=== PATIENT | female | born 1955 | race Caucasian/White ===

== ENCOUNTER 2018-03-06 17:28 | Emergency (ER) | payer MEDICAID, SELFPAY ==
[2018-03-06 17:30] VITALS: BP 166/65; PULSE 60; RESP 24; TEMP 37.2; O2SAT 95; BMI 52.1
--- NOTE | 2018-03-06 18:12 | ED.VISSUMM ---
- ER Visit Summary Date of Service: 03/06/18 Chief Complaint: Evicted today and out of oxygen History of Present Illness: The patient is a 62 F 3 of COPD on 3-5 L of oxygen as needed. Patient was evicted from her apartment today and the oxygen she uses in the apartment when she cannot get to. She was sent here to be medically cleared and if possible given oxygen and transferred to the [facility]. I have already spoken the [facility] personnel they will accept her as long as she has O2. Physical Examination: Well-appearing older female vital signs are stable afebrile. Pulse ox 95% on 2 L. She does not look septic toxic. She is no acute distress. She states she feels absolutely fine as long she has her oxygen on. HEENT exam unremarkable. Neck nontender no JVD. Lungs coarse but no rales, rhonchi or excessive wheezing. Heart regular rhythm / 01/30 systolic ejection murmur rate about 60. Abdomen soft and nontender. Normal bowel sounds. Moving all 4 extremities. Neurologically she is awake and alert without focal motor deficits. Test Results: None Emergency Department Course and Treatment: We spoke to [facility] and irrigating the patient set up with oxygen. Patient will be sent to [facility] with oxygen. Treatment Plan: [] Disposition: discharge Impression: History of COPD requiring O2 Out of oxygen Home was being placed at the [facility] This note was generated with [employer] dictation software. It may contain incorrect words, spelling, and punctuation that were not noted in review of the chart prior to signing ED Disposition - Plan for ED Patient: Chief Complaint: General Illness Referrals: [facility] Doctor,Out of [Primary Care Provider] -
--- NOTE | 2018-03-06 18:15 | ED.DCSUM_ITS ---
- ER Visit Summary Date of Service: 03/06/18 Chief Complaint: Evicted today and out of oxygen History of Present Illness: The patient is a 62 F 3 of COPD on 3-5 L of oxygen as needed. Patient was evicted from her apartment today and the oxygen she uses in the apartment when she cannot get to. She was sent here to be medically cleared and if possible given oxygen and transferred to the [facility]. I have already spoken the [facility] personnel they will accept her as long as she has O2. Physical Examination: Well-appearing older female vital signs are stable afebrile. Pulse ox 95% on 2 L. She does not look septic toxic. She is no acute distress. She states she feels absolutely fine as long she has her oxygen on. HEENT exam unremarkable. Neck nontender no JVD. Lungs coarse but no rales, rhonchi or excessive wheezing. Heart regular rhythm / 01/30 systolic ejection murmur rate about 60. Abdomen soft and nontender. Normal bowel sounds. Moving all 4 extremities. Neurologically she is awake and alert without focal motor deficits. Test Results: None Emergency Department Course and Treatment: We spoke to [facility] and irrigating the patient set up with oxygen. Patient will be sent to [facility] with oxygen. Treatment Plan: [] Disposition: discharge Impression: History of COPD requiring O2 Out of oxygen Home was being placed at the [facility] This note was generated with [employer] dictation software. It may contain incorrect words, spelling, and punctuation that were not noted in review of the chart prior to signing ED Disposition - Plan for ED Patient: Chief Complaint: General Illness Referrals: [facility] Doctor,Out of [Primary Care Provider] -
--- NOTE | 2018-03-06 18:15 | ED.DEP ---
ED Disposition - Plan for ED Patient: Disposition: Home or Assisted Living Chief Complaint: General Illness Referrals: [facility] Doctor,Out of [Primary Care Provider] - Additional Instructions: Good luck !!
--- OUTSIDE RECORDS SUMMARY | 2018-03-06 18:32 | XMS RPT_ITS ---
:1955 Author Organization OHIP Care Team Providers Name Role Phone Olga Hutchison Primary Care Unavailable Artie Vivar Attending Unavailable TavOlga ambriz Primary Care Unavailable Me Giovanihrdakhadar Teejda Referring Unavailable Jessica Garcia Admitting Unavailable Jessica Garcia Attending Unavailable Bora Espinoza Attending Unavailable NarenallbrandoneOlga Primary Care Unavailable Triny Felton Attending Unavailable NarenallbrandoneOlga Primary Care Unavailable Triny Felton Admitting Unavailable TavallbrandoneMeOlga M Attending Unavailable TavallaeeOlga Primary Care Unavailable TavallaeeOlga Admitting Unavailable TavallbrandoneOlga Attending Unavailable NarenallOlga corey Primary Care Unavailable NarenallbrandoneDarrellOlga M Primary Care Unavailable NarenallbrandoneOlga Attending Unavailable TavallaeeMeOlga Ileana Primary Care Unavailable MD JESSICA GARCIA Attending Unavailable TavallaeeOlga Primary Care Unavailable TavallaeeOlga Attending Unavailable TavallbrandoneMeOlga M Primary Care Unavailable Bora Espinoza Attending Unavailable NarenallOlga corey Primary Care Unavailable Brice Hernandez Attending Unavailable Olga Hutchison Primary Care Unavailable Brice Hernandez Admitting Unavailable TavOlga ambriz Primary Care Unavailable Bakari Diop Admitting Unavailable JadonBakari cummins Attending Unavailable Cb, Qarab H Consulting Unavailable Tavallaee, Olga Tejeda Primary Care Unavailable Cb, Qarab H Attending Unavailable TavallaeeOlga Attending Unavailable TavallaeeDarrellOlga M Primary Care Unavailable Tavallaee, Olga M Primary Care Unavailable Tavallaee, Olga Tejeda Attending Unavailable Tavallaee, Olga Tejeda Primary Care Unavailable Bora Espinoza Attending Unavailable TavallaeeOlga Primary Care Unavailable TavallaeeOlga Admitting Unavailable Tavallaee, Olga Tejeda Attending Unavailable Tavallaee, Olga Tejeda Primary Care Unavailable Tavallaee, Olga Tejeda Attending Unavailable Tavallaee, Olga Tejeda Primary Care Unavailable Tavallaee, Olga Tejeda Attending Unavailable TavallaeeOlga Primary Care Unavailable Tavallaee, Olga Tejeda Attending Unavailable TavallaeeOlga Referring Unavailable Tavallaee, Olga Tejeda Primary Care Unavailable TavallaeeOlga Admitting Unavailable Tavallaee, Olga Tejeda Attending Unavailable TavallaeeOlga Primary Care Unavailable Tavallaee, Olga Tejeda Admitting Unavailable Triny Felton Admitting Unavailable Triny Felton Attending Unavailable TavallaeeOlga Primary Care Unavailable TavallaeeOlga Admitting Unavailable Tavallaee, Olga Tejeda Attending Unavailable TavallaeeOlga Primary Care Unavailable Tavallaee, Olga Tejeda Attending Unavailable TavallaeeOlga Primary Care Unavailable Tavallaee, Olga M Primary Care Unavailable Nate Bobo Admitting Unavailable Nate Bobo Attending Unavailable TavallaeeOlga Attending Unavailable Tavallaee, Olga M Primary Care Unavailable Ishmael Meier Admitting Unavailable Ishmael Meier Attending Unavailable Tavallaee, Olga Tejeda Primary Care Unavailable Ishmael Meier Admitting Unavailable Ishmael Meier Attending Unavailable Olga Hutchison M Primary Care Unavailable Ishmael Meier Admitting Unavailable Ishmael Meier Attending Unavailable Giovani, Olga M Primary Care Unavailable Ishmael Meier Admitting Unavailable Ishmael Meier Attending Unavailable Tavallaee, Olga M Primary Care Unavailable Tavallaee, Olga M Attending Unavailable Tavallaee, Olga M Primary Care Unavailable Bora Espinoza Attending Unavailable Tavallaee, Olga M Primary Care Unavailable Bora Espinoza Attending Unavailable Tavallaee, Olga M Primary Care Unavailable Bora Espinoza Admitting Unavailable Bora Espinoza Attending Unavailable Tavallaee, Olga M Primary Care Unavailable Mat Vanegas Attending Unavailable TAVALLAEE, OLGA Primary Care Unavailable Clarita Rice Attending Unavailable TAVALLAEE, OLGA Primary Care Unavailable PROBLEMS PROBLEMS DATE TYPE CONDITION / CODE ATTENDING STATUS SOURCE 05/09/2017 Unknown CERVICALGIA / BasalClarita magana Active [place] M54.2(ICD-10) [facility] [facility] [place]ED[place] PROCEDURES No Procedure Records FoundRESULTS RESULTS GASES - BLOOD Collected: 02/17/2018 Status: F Source: RESTORATION 9:30 AM [facility] REPOSITORY TYPE CODE TESTS RESULT OUT OF RANGE REFERENCE UNITS LAB 35175646(L Normal OINC) Sample Arterial Type. LAB 09794103(L Normal 7.350-7.450 OINC) pH. 7.366 LAB 32295432(L High 35.0-45.0 mmHg OINC) P CO2. 61.4 LAB 66455716(L Low 80-100 mmHg OINC) P O2. 63 LAB 57401251(L High 22-28 mmol/L OINC) CO2 37 Tot. LAB 15686582(L High 22.0-26.0 mmol/L OINC) HCO#. 35.2 LAB 30114374(L Low 95-100 % OINC) O2 Sat. 90 LAB 91580953(L High -2-3 mmol/L OINC) Base 10 Excess. LAB 10128033(L Normal % OINC) FiO2. 36 LAB 95298409(L Normal OINC) Sample L rad Site. LAB 44260333(L Normal OINC) Allens Neg Test. LAB 17438624(L Normal OINC) O2 Cannula Devices. LAB 78589453(L Normal OINC) Vent NOT Mode. CALCULATED LAB 68153295(L Normal OINC) Set NOT RR(b/min). CALCULATED LAB 90659792(L Normal OINC) NOT CPAP/PEEP(cmH CALCULATED 2O). LAB 40064572(L Normal OINC) Tidal NOT Volume(mL). CALCULATED LAB 79191175(L Normal OINC) NOT PSV/IP(cmH2O) CALCULATED . LAB 51853893(L Normal DegC OINC) Patient NOT Temp. CALCULATED LAB 48536307(L Normal OINC) OPID. [id number] Performed By: #### [id number] ####EMILIO POC [id number] [place] [id number] VARUN TEST Collected: 11/27/2017 Status: F Source: RESTORATION 11:32 AM [facility] REPOSITORY TYPE CODE TESTS RESULT OUT OF RANGE REFERENCE UNITS LAB 17138482(LO Normal Negative INC) VARUN Negative Test Performed By: #### [id number] ####EMILIO Misc Micro SubSection, GLUCOSE POC Collected: 11/27/2017 Status: F Source: RESTORATION 9:30 AM [facility] REPOSITORY TYPE CODE TESTS RESULT OUT OF REFERENCE UNITS RANGE LAB 18183359(LO High 70-99 mg/dL INC) Glucose 156 POC Performed By: #### [id number] ####EMILIO POC [id number] [place] [id number] XR WRIST 3+ VIEWS Observed: 11/25/2017 Status: F Source: RESTORATION LEFT 9:21 AM [facility] REPOSITORY Exam Date/Time:11/25/2017 09:26 ESTReason for Exam:Pain, Non TraumaticReportCLINICAL HISTORY: Pain along the medial aspect. No known injury.LEFT WRIST: 11/25/2017.COMPARISON: None.FINDINGS: Four views are acquired which demonstrate there is joint spacenarrowing involving the carpometacarpal joints. The bones are osteopenic. Nodefinite fractures, dislocations. No abnormal soft tissue swelling,calcifications, radiopaque foreign bodies.IMPRESSION:1. Osteopenia.2. Mild degenerative changes of the carpometacarpal joints.3. No acute fractures or dislocations. FINAL REPORT Dictated: 11/25/2017 10:27 am Adam Moore MDigned (Electronic Signature): 11/25/2017 10:27 amSigned by: Adam Moore MD Technologist: [facility] MA MAMM SCREEN W/CAD Observed: 09/23/2017 Status: F Source: RESTORATION IF PERFORMED BILAT 12:42 PM [facility] REPOSITORY Exam Date/Time:09/23/2017 13:01 ESTReason for Exam:SCREENING;ScreeningReportEXAMINATION: Digital bilateral screening mammography with CAD.INDICATION: Asymptomatic. Screening. Negative family history.COMPARISON: No comparisons available. The last examination was performed [facility] in 2002 in is no longer available forcomparison.COMPOSITION : Fatty-replaced breast tissue.FINDINGS: Negative CAD markings. No mass. No architectural distortion. Nomalignant-appearing calcification.IMPRESSION:New baseline study.Negative mammographic findings.BI-RADS 1 - Negative, no evidence of malignancy. Normal interval followup in 12months.OVERALL ASSESSMENT- NEGATIVEA letter of notification will be sent to the patient regarding the results.Assessment / Recommendation: 1-1 Normal interval follow-up.Breast density: Fatty DensityRecall interval: 012 months FINAL REPORT Dictated: 09/23/2017 3:44 pm Bora Mendez DOigned (Electronic Signature): 09/23/2017 3:44 pmSigned by: Bora Mendez DO Technologist: Karlaessment: BI-RADS Category 1-NegativeRecommendation: Normal interval follow-up CBC W/ AUTO DIFF Collected: 09/23/2017 Status: F Source: RESTORATION 12:36 PM [facility] REPOSITORY TYPE CODE TESTS RESULT OUT OF RANGE REFERENCE UNITS LAB 76378003(L Normal 3.6-11.0 E3/mcL OINC) WBC 9.5 LAB 74470286(L Normal 3.90-5.40 E6/mcL OINC) RBC 4.70 LAB 94963146(L Normal 12.0-16.0 G/DL OINC) Hgb 13.6 LAB 41072664(L Normal 36.0-48.0 % OINC) Hct 42.2 LAB 88611240(L High 11.5-14.5 % OINC) RDW 16.0 LAB 92809682(L Normal 27.0-31.0 pg OINC) MCH 29.0 LAB 96652396(L Low 33.0-37.0 G/DL OINC) MCHC 32.2 LAB 71426635(L Normal 78.0-100.0 fL OINC) MCV 89.9 LAB 83691383(L Normal 7.4-11.0 fL OINC) MPV 8.2 LAB 22194717(L Normal 130-400 E3/mcL OINC) Platelet 282 Performed By: #### [id number] ####EMILIO [address] [place] [id number] AUTO DIFF Collected: 09/23/2017 Status: F Source: RESTORATION 12:36 PM [facility] REPOSITORY Order Comment: Order Added by Discern Expert. TYPE CODE TESTS RESULT OUT OF RANGE REFERENCE UNITS LAB [id number](L Normal 37.0-75.0 % OINC) Neutro 68.4 Auto LAB [id number](L Normal 20.0-55.0 % OINC) Lymph 23.1 Auto LAB 47844329(L Normal 0.0-10.0 % OINC) [place] Auto 6.3 LAB 54646869(L Normal 0.0-11.0 % OINC) Eos Auto 1.2 LAB 52468271(L Normal 0.0-2.0 % OINC) Basophil 1.0 Auto LAB 58941542(L Normal 1.4-6.5 E3/mcL OINC) Neutro 6.5 Absolute LAB 99273001(L Normal 1.2-3.4 E3/mcL OINC) Lymph 2.2 Absolute LAB 68984732(L Normal 0.0-0.7 E3/mcL OINC) [place] 0.6 Absolute LAB 01808143(L Normal 0.0-0.7 E3/mcL OINC) Eos 0.1 Absolute LAB 25315400(L Normal 0.0-0.2 E3/mcL OINC) Basophil 0.1 Absolute Performed By: #### [id number] ####EMILIO [address] [place] [id number] CMP Collected: 09/23/2017 Status: F Source: RESTORATION 12:36 PM [facility] REPOSITORY TYPE CODE TESTS RESULT OUT OF RANGE REFERENCE UNITS LAB 63310917(L Normal 42-121 Int._Unit/ OINC) Alk Phos 66 L LAB 69903211(L Normal 0.2-1.0 mg/dL OINC) Bili Total 0.5 LAB 62644059(L Normal 3.2-5.0 G/DL OINC) Albumin Lvl 3.7 LAB 74855867(L Normal 6.4-8.3 G/DL OINC) Total Protein 7.1 LAB 77525607(L Normal 10-40 Int._Unit/ OINC) ALT 18 L LAB 76227212(L Normal 10-42 Int._Unit/ OINC) AST 19 L LAB 84687716(L Normal 2.0-4.0 G/DL OINC) Globulin 3.4 LAB 31204906(L Normal 1.1-1.9 ratio OINC) A/G Ratio 1.1 LAB 91834831(L High 70-99 mg/dL OINC) Glucose Lvl 149 LAB 56512595(L Normal 7-18 mg/dL OINC) BUN 12 LAB 3383432(LO Normal 0.6-1.3 mg/dL INC) Creatinine 0.9 LAB 51015909(L Normal 8.4-10.2 mg/dL OINC) Calcium Lvl 9.1 LAB 91213114(L Normal 136-145 mEq/L OINC) Sodium Lvl 139 LAB 41829268(L Normal 3.5-5.1 mEq/L OINC) Potassium Lvl 4.2 LAB 50737662(L Low 98-107 mEq/L OINC) Chloride 97 LAB 53482635(L High 24.0-30.0 mEq/L OINC) CO2 36.2 LAB 17214896(L Normal 5.4-30.0 ratio OINC) BUN/Creat 13.3 Ratio Performed By: #### [id number] ####EMILIO [address] [place] [address] LIPID PROFILE Collected: 09/23/2017 Status: F Source: RESTORATION 12:36 PM [facility] REPOSITORY TYPE CODE TESTS RESULT OUT OF RANGE REFERENCE UNITS LAB 01740290(LO High 50-200 mg/dL INC) Chol 208 Result Comment: TOTAL CHOLEESTEROL: <200 NORMAL 200 - 239 BORDERLINE HIGH >240 HIGH LAB 92767037(LOINC) Normal >=41 mg/dL HDL 51 LAB 06291355(LOINC) Normal 0-130 mg/dL LDL 126 Result Comment: <100 [id number] NEAR / ABOVE IUSDYUQ671-648 BORDERLINE [id number] HIGH>190 VERY HIGHCALC LDL NOT VALID WHEN TRIGLYCERIDE IS >400 MG/DL LAB 47902313(LOINC) High 35-150 mg/dL Trig 156 Result Comment: <150 EMAJCM170-970 BORDERLINE [id number] HIGH& gt;500 VERY HIGH LAB 37238141(LOINC) Normal VLDL 31 Performed By: #### [id number] ####EMILIO [address] [place] [address] TSH Collected: 09/23/2017 Status: F Source: RESTORATION 12:36 PM [facility] REPOSITORY TYPE CODE TESTS RESULT OUT OF RANGE REFERENCE UNITS LAB 97997227(LO High 0.30-5.60 mIU/m INC) TSH 10.72 Performed By: #### [id number] ####EMILIO [address] [place] [address] EGFR Collected: 09/23/2017 Status: F Source: RESTORATION 12:36 PM [facility] REPOSITORY Order Comment: Order added by Discern Expert. TYPE CODE TESTS RESULT OUT OF RANGE REFERENCE UNITS LAB 14977831(LO Normal mL/min/1.73 INC) eGFR >60 m2 LAB 06414067(LO Normal mL/min/1.73 INC) eGFR >60 m2 AA Performed By: #### [id number] ####EMILIO [address] [place] [address] HGBA1C Collected: 09/23/2017 Status: F Source: RESTORATION 12:36 PM [facility] REPOSITORY TYPE CODE TESTS RESULT OUT OF REFERENCE UNITS RANGE LAB 098140811( High 4.0-6.3 % LOINC) Hemoglobin 8.3 A1c Performed By: #### [id number] ####EMILIO Chemistry Manual [address] [place] [address] GLUCOSE POC Collected: 08/01/2017 Status: F Source: RESTORATION 11:29 AM [facility] REPOSITORY TYPE CODE TESTS RESULT OUT OF REFERENCE UNITS RANGE LAB 71056781(LO High 70-99 mg/dL INC) Glucose 284 POC Performed By: #### [id number] ####EMILIO POC [address] [place] [id number] GLUCOSE POC Collected: 08/01/2017 Status: F Source: RESTORATION 7:38 AM [facility] REPOSITORY TYPE CODE TESTS RESULT OUT OF REFERENCE UNITS RANGE LAB 59474949(LO High 70-99 mg/dL INC) Glucose 231 POC Performed By: #### [id number] ####EMILIO POC [address] [place] [id number] CBC W/ AUTO DIFF Collected: 08/01/2017 Status: F Source: RESTORATION 5:46 AM [facility] REPOSITORY TYPE CODE TESTS RESULT OUT OF RANGE REFERENCE UNITS LAB [id number](L Normal 3.6-11.0 E3/mcL OINC) WBC 10.1 LAB 44203627(L Normal 3.90-5.40 E6/mcL OINC) RBC 4.48 LAB 37657630(L Normal 12.0-16.0 G/DL OINC) Hgb 12.6 LAB 20015061(L Normal 36.0-48.0 % OINC) Hct 39.4 LAB 79611893(L High 11.5-14.5 % OINC) RDW 18.1 LAB 78712782(L Normal 27.0-31.0 pg OINC) MCH 28.2 LAB 74328772(L Low 33.0-37.0 G/DL OINC) MCHC 32.1 LAB 46284763(L Normal 78.0-100.0 fL OINC) MCV 87.8 LAB 55848930(L Normal 7.4-11.0 fL OINC) MPV 8.0 LAB 56687558(L Normal 130-400 E3/mcL OINC) Platelet 273 Performed By: #### [id number] ####EMILIO [address] [place] [id number] AUTO DIFF Collected: 08/01/2017 Status: F Source: RESTORATION 5:46 AM [facility] REPOSITORY Order Comment: Order Added by Discern Expert. TYPE CODE TESTS RESULT OUT OF RANGE REFERENCE UNITS LAB 40093226(L Normal 37.0-75.0 % OINC) Neutro 72.9 Auto LAB 91568758(L Low 20.0-55.0 % OINC) Lymph 19.9 Auto LAB 98629669(L Normal 0.0-10.0 % OINC) [place] Auto 5.5 LAB 13578291(L Normal 0.0-11.0 % OINC) Eos Auto 1.3 LAB 24688031(L Normal 0.0-2.0 % OINC) Basophil 0.4 Auto LAB 54013500(L High 1.4-6.5 E3/mcL OINC) Neutro 7.4 Absolute LAB 63215456(L Normal 1.2-3.4 E3/mcL OINC) Lymph 2.0 Absolute LAB 23488369(L Normal 0.0-0.7 E3/mcL OINC) [place] 0.6 Absolute LAB 82268546(L Normal 0.0-0.7 E3/mcL OINC) Eos 0.1 Absolute LAB 58093650(L Normal 0.0-0.2 E3/mcL OINC) Basophil 0.0 Absolute Performed By: #### [id number] ####EMILIO [address] [place] [id number] BMP Collected: 08/01/2017 Status: F Source: RESTORATION 5:46 AM [facility] REPOSITORY TYPE CODE TESTS RESULT OUT OF RANGE REFERENCE UNITS LAB 47686949(L High 70-99 mg/dL OINC) Glucose Lvl 239 LAB 20993957(L High 7-18 mg/dL OINC) BUN 20 LAB 1061292(LO Normal 0.6-1.3 mg/dL INC) Creatinine 1.0 LAB 25823372(L Normal 5.4-30.0 ratio OINC) BUN/Creat 20.0 Ratio LAB 58064156(L Normal 8.4-10.2 mg/dL OINC) Calcium Lvl 9.2 LAB 81867566(L Normal 136-145 mEq/L OINC) Sodium Lvl 138 LAB 38116826(L Normal 3.5-5.1 mEq/L OINC) Potassium Lvl 4.4 LAB 51148904(L Low 98-107 mEq/L OINC) Chloride 95 LAB 74830974(L High 24.0-30.0 mEq/L OINC) CO2 38.0 Performed By: #### [id number] ####EMILIO [address] [place] [id number] EGFR Collected: 08/01/2017 Status: F Source: RESTORATION 5:46 AM [facility] REPOSITORY Order Comment: Order added by Discern Expert. TYPE CODE TESTS RESULT OUT OF RANGE REFERENCE UNITS LAB 39958891(LO Normal mL/min/1.73 INC) eGFR 56 m2 LAB 38292539(LO Normal mL/min/1.73 INC) eGFR >60 m2 AA Performed By: #### [id number] ####EMILIO [address] [place] [id number] MORPH Collected: 08/01/2017 Status: F Source: RESTORATION 5:46 AM [facility] REPOSITORY Order Comment: Order Added by Discern Expert. TYPE CODE TESTS RESULT OUT OF REFERENCE UNITS RANGE LAB 28819554( Normal LOINC) RBC Morph SEE MORPHOLOGY LAB 07483428( Normal LOINC) Hypochromasia 1+ LAB 98500893( Normal LOINC) Anisocytosis 1+ Performed By: #### [id number] ####EMILIO [address] [place] [id number] ZZPLT MORPH Collected: 08/01/2017 Status: F Source: RESTORATION 5:46 AM [facility] REPOSITORY TYPE CODE TESTS RESULT OUT OF RANGE REFERENCE UNITS LAB 46141073(L Normal OINC) Platelet Estimate NORMAL LAB 30505300(L Normal OINC) Platelet Morph NORMAL Performed By: #### [id number] ####EMILIO [address] [place] [id number] TROPONIN-I Collected: 07/31/2017 Status: F Source: RESTORATION 10:32 PM [facility] REPOSITORY TYPE CODE TESTS RESULT OUT OF RANGE REFERENCE UNITS LAB 12462925(LO Normal .00-.03 ng/mL INC) .01 Troponin-I Performed By: #### [id number] ####EMILIO [address] [place] [id number] GLUCOSE POC Collected: 07/31/2017 Status: F Source: RESTORATION 8:13 PM [facility] REPOSITORY TYPE CODE TESTS RESULT OUT OF REFERENCE UNITS RANGE LAB 83512016(LO High 70-99 mg/dL INC) Glucose 155 POC Performed By: #### [id number] ####EMILIO POC [address] [place] [address] GLUCOSE POC Collected: 07/31/2017 Status: F Source: RESTORATION 4:24 PM [facility] REPOSITORY TYPE CODE TESTS RESULT OUT OF REFERENCE UNITS RANGE LAB 32846245(LO High 70-99 mg/dL INC) Glucose 180 POC Performed By: #### [id number] ####EMILIO POC [address] [place] [id number] TROPONIN-I Collected: 07/31/2017 Status: F Source: RESTORATION 4:02 PM [facility] REPOSITORY TYPE CODE TESTS RESULT OUT OF RANGE REFERENCE UNITS LAB 36892752(LO Normal .00-.03 ng/mL INC) .01 Troponin-I Performed By: #### [id number] ####EMILIO [address] [place] [id number] INFLUENZA A&B AG Collected: 07/31/2017 Status: F Source: RESTORATION 2:49 PM [facility] REPOSITORY TYPE CODE TESTS RESULT OUT OF REFERENCE UNITS RANGE LAB 50125086(L Normal Negative OINC) Influenzae A Negative Ag LAB 81570504(L Normal Negative OINC) Influenzae B Negative Ag Performed By: #### [id number] ####EMILIO Misc Micro SubSection, CT THORAX W/O Observed: 07/31/2017 Status: F Source: RESTORATION CONTRAST 12:31 PM [facility] REPOSITORY Exam Date/Time:07/31/2017 12:48 EDTReason for Exam:PneumoniaReportEXAM: CT THORAX WITHOUT CONTRASTCLINICAL STATEMENT: Chest pain.COMPARISON: None.TECHNIQUE: CT examination of the chest?without IV contrast. Coronal andsagittal reformations were performed. ?Dose reduction techniques were achieved by using automated exposure controland/or adjustment of mA and/or kV according to patient size and/or use ofiterative reconstruction technique.FINDINGS: No pulmonary parenchymal nodule is seen. There is a defect in theposterior aspect of the left hemidiaphragm, through which there is herniationof the abdominal fat, causing a Bochdalek hernia. This is the reason for therounded density seen at the medial aspect of the left hemidiaphragm on theprevious chest radiographs.No mediastinal or hilar lymphadenopathy is present. The pulmonary conus isenlarged measuring 3.9 cm. Both the right and left pulmonary arteries are alsoenlarged measuring 3.3 cm on the right and 2.6 cm on the left. The ascendingaorta at the level of the pulmonary conus, measures 4.2 cm in size. Noenlargement of the right ventricle is seen.Note is made of mild calcification in the proximal LAD and circumflex coronaryarteries.There is a mosaic pattern in the lungs.IMPRESSION:Herniation of the abdominal fat into the posterior left hemithorax through adiaphragmatic defect.No lung mass lesion.Enlargement of the pulmonary conus. The possibility of pulmonary valvulardisease/pulmonary arterial hypertension should be excluded.Exam Date/Time:07/31/2017 12:48 EDTReportCoronary artery calcifications. FINAL REPORT Dictated: 07/31/2017 5:10 pm Freddy Moran MD KSigned (Electronic Signature): 07/31/2017 5:10 pmSigned by: Freddy Moran MD Technologist: LISA GLUCOSE POC Collected: 07/31/2017 Status: F Source: RESTORATION 11:54 AM [facility] REPOSITORY TYPE CODE TESTS RESULT OUT OF REFERENCE UNITS RANGE LAB 03864814(LO High 70-99 mg/dL INC) Glucose 247 POC Performed By: #### [id number] ####EMILIO POC [address] [place] [id number] XR CHEST AP PORTABLE Observed: 07/31/2017 Status: F Source: RESTORATION 8:44 AM [facility] REPOSITORY Exam Date/Time:07/31/2017 08:50 EDTReason for Exam:Other ( please specify)ReportHISTORY: 61-year-old female with 1 month chest pain.COMPARISON: None.FINDINGS: Heart size upper normal. Lungs are clear. No pneumonia or pulmonaryedema. A rounded density near the left hemidiaphragm may represent a high renalshadow or another likely benign process given its smooth borders. It measures6.1 cm in greatest diameter. A watch or some other electronic device overliesthe anterior left fourth rib and there are 2 small coil-like densities near theright mainstem bronchus, each measuring approximately 3 mm in diameter ofunknown origin.IMPRESSION:No failure or pneumonia.Likely multiple artifacts, see above.A density at the left lung base/left hemidiaphragm only partially visualized onthis portable chest, likely benign, however it would require a CT scan of thechest and upper abdomen or at least a repeat 2 view chest, to include a lateralview, to further define this structure. FINAL REPORT Dictated: 07/31/2017 10:02 am Wisam Acharya MD VSigned (Electronic Signature): 07/31/2017 10:02 amSigned by: Wisam Acharya MD V Technologist: CEC CBC W/ AUTO DIFF Collected: 07/31/2017 Status: F Source: RESTORATION 8:41 AM [facility] REPOSITORY TYPE CODE TESTS RESULT OUT OF RANGE REFERENCE UNITS LAB 37481372(L Normal 3.6-11.0 E3/mcL OINC) WBC 10.8 LAB 17830242(L Normal 3.90-5.40 E6/mcL OINC) RBC 4.94 LAB 83488214(L Normal 12.0-16.0 G/DL OINC) Hgb 13.9 LAB 08213184(L Normal 36.0-48.0 % OINC) Hct 43.2 LAB 26363732(L High 11.5-14.5 % OINC) RDW 17.7 LAB 27791617(L Normal 27.0-31.0 pg OINC) MCH 28.2 LAB 70067222(L Low 33.0-37.0 G/DL OINC) MCHC 32.2 LAB 45275297(L Normal 78.0-100.0 fL OINC) MCV 87.4 LAB 45711927(L Normal 7.4-11.0 fL OINC) MPV 7.8 LAB 71974508(L Normal 130-400 E3/mcL OINC) Platelet 305 Performed By: #### [id number] ####EMILIO [address] [place] [id number] AUTO DIFF Collected: 07/31/2017 Status: F Source: RESTORATION 8:41 AM [facility] REPOSITORY Order Comment: Order Added by Discern Expert. TYPE CODE TESTS RESULT OUT OF RANGE REFERENCE UNITS LAB 85511420(L High 37.0-75.0 % OINC) Neutro 75.6 Auto LAB 73177719(L Low 20.0-55.0 % OINC) Lymph 17.7 Auto LAB 28701674(L Normal 0.0-10.0 % OINC) [place] Auto 5.3 LAB 79608281(L Normal 0.0-11.0 % OINC) Eos Auto 0.9 LAB 79387797(L Normal 0.0-2.0 % OINC) Basophil 0.5 Auto LAB 00441471(L High 1.4-6.5 E3/mcL OINC) Neutro 8.2 Absolute LAB 54108400(L Normal 1.2-3.4 E3/mcL OINC) Lymph 1.9 Absolute LAB 25515689(L Normal 0.0-0.7 E3/mcL OINC) [place] 0.6 Absolute LAB 35701903(L Normal 0.0-0.7 E3/mcL OINC) Eos 0.1 Absolute LAB 09163236(L Normal 0.0-0.2 E3/mcL OINC) Basophil 0.1 Absolute Performed By: #### [id number] ####EMILIO [address] [place] [id number] PT Collected: 07/31/2017 Status: F Source: RESTORATION 8:41 AM [facility] REPOSITORY TYPE CODE TESTS RESULT OUT OF RANGE REFERENCE UNITS LAB 83100679(LO Normal 1.0-1.2 INC) INR 1.0 Result Comment: INR Recommended Therapeuptic Ranges: Prophylaxis/treatment of DVT and PE?2.0-3.0 Prevention of systemic embolism? .2.0-3.0 Mechanical prosthetic values?2.5-3.5 CRITICAL VALUES?.>4.0 LAB 38276267(LOINC) Normal 11.6-14.6 second(s) PT 12.2 Performed By: #### [id number] ####EMILIO Hematology Automated [address] [place] [id number] PTT Collected: 07/31/2017 Status: F Source: RESTORATION 8:41 AM [facility] REPOSITORY TYPE CODE TESTS RESULT OUT OF RANGE REFERENCE UNITS LAB 48544912(LO Normal 23.2-36.4 second(s) INC) PTT 26.7 Performed By: #### [id number] ####EMILIO Hematology Automated [id number] [place] [id number] PTT CONTROL RATIO Collected: 07/31/2017 Status: F Source: RESTORATION 8:41 AM [facility] REPOSITORY Order Comment: Order added by Discern Expert. TYPE CODE TESTS RESULT OUT OF RANGE REFERENCE UNITS LAB [id number](LO Normal 0.8-1.2 ratio INC) PTT 0.9 Ratio Performed By: #### [id number] ####EMILIO Hematology Automated W[address]aww9474 [place] [id number] TROPONIN-I Collected: 07/31/2017 Status: F Source: RESTORATION 8:41 AM [facility] REPOSITORY TYPE CODE TESTS RESULT OUT OF RANGE REFERENCE UNITS LAB [id number](LO Normal .00-.03 ng/mL INC) .01 Troponin-I Performed By: #### [id number] ####EMILIO VqpFjta8408 [place] [id number] CMP Collected: 07/31/2017 Status: F Source: RESTORATION 8:41 AM [facility] REPOSITORY TYPE CODE TESTS RESULT OUT OF RANGE REFERENCE UNITS LAB 79217856(L High 70-99 mg/dL OINC) Glucose Lvl 302 LAB 16951460(L Normal 8.4-10.2 mg/dL OINC) Calcium Lvl 9.3 LAB 21684100(L Normal 136-145 mEq/L OINC) Sodium Lvl 136 LAB 11515933(L Normal 3.5-5.1 mEq/L OINC) Potassium Lvl 4.5 LAB 51324539(L Low 98-107 mEq/L OINC) Chloride 91 LAB 08688380(L High 24.0-30.0 mEq/L OINC) CO2 33.8 LAB 86840588(L Normal 7-18 mg/dL OINC) BUN 17 LAB 6538285(LO Normal 0.6-1.3 mg/dL INC) Creatinine 0.9 LAB 83145702(L Normal 42-121 Int._Unit/ OINC) Alk Phos 62 L LAB 12097620(L Normal 0.2-1.0 mg/dL OINC) Bili Total 0.4 LAB 22163979(L Normal 3.2-5.0 G/DL OINC) Albumin Lvl 3.8 LAB 68206229(L Normal 6.4-8.3 G/DL OINC) Total Protein 7.1 LAB 97427815(L Normal 10-40 Int._Unit/ OINC) ALT 16 L LAB 35587161(L Normal 10-42 Int._Unit/ OINC) AST 20 L LAB 32769940(L Normal 5.4-30.0 ratio OINC) BUN/Creat 18.9 Ratio LAB 58836041(L Normal 2.0-4.0 G/DL OINC) Globulin 3.3 LAB 33656030(L Normal 1.1-1.9 ratio OINC) A/G Ratio 1.2 Performed By: #### [id number] ####EMILIO BowieOkeZkov4285 [place] [id number] BNP. Collected: 07/31/2017 Status: F Source: RESTORATION 8:41 AM [facility] REPOSITORY TYPE CODE TESTS RESULT OUT OF RANGE REFERENCE UNITS LAB CD:[id number] Normal <=100 pg/mL 67(LOINC) BNP. 39 Result Comment: Notice: Effective 04/09/2017 the methodology for BNP testing has changed. BNP values less than or equal to 100 pg/mL is considered normal for patients without CHF.The decision threshold was determined by the 95% confidence limit of BNP concentration in the non-CHF population age 55 and older.It is recommended that a new baseline value be established using the new method if monitoring patient's BNP level. Performed By: #### CD:[id number] ####EMILIO BowieBgsFjao2618 [place] [id number] MORPH Collected: 07/31/2017 Status: F Source: RESTORATION 8:41 AM [facility] REPOSITORY Order Comment: Order Added by Discern Expert. TYPE CODE TESTS RESULT OUT OF RANGE REFERENCE UNITS LAB 22419796(LO Normal INC) RBC NORMAL Morph Performed By: #### [id number] ####EMILIO OwsXibf0737 [place] [id number] ZZPLT MORPH Collected: 07/31/2017 Status: F Source: RESTORATION 8:41 AM [facility] REPOSITORY TYPE CODE TESTS RESULT OUT OF RANGE REFERENCE UNITS LAB 16711765(L Normal OINC) Platelet Estimate NORMAL LAB 86770552(L Normal OINC) Platelet Morph NORMAL Performed By: #### [id number] ####EMILIO PsqTnmp6305 [place] [id number] EGFR Collected: 07/31/2017 Status: F Source: RESTORATION 8:41 AM [facility] REPOSITORY Order Comment: Order added by Discern Expert. TYPE CODE TESTS RESULT OUT OF RANGE REFERENCE UNITS LAB 55368437(LO Normal mL/min/1.73 INC) eGFR >60 m2 LAB 44777270(LO Normal mL/min/1.73 INC) eGFR >60 m2 AA Performed By: #### [id number] ####EMILIO KwqArfi6030 [place] [id number] TSH Collected: 07/31/2017 Status: F Source: RESTORATION 8:40 AM [facility] REPOSITORY TYPE CODE TESTS RESULT OUT OF RANGE REFERENCE UNITS LAB 53156077(LO High 0.30-5.60 mIU/m INC) TSH 12.34 Performed By: #### [id number] ####EMILIO NrwXqxu5554 [place] [id number] HGBA1C Collected: 07/31/2017 Status: F Source: RESTORATION 8:40 AM [facility] REPOSITORY TYPE CODE TESTS RESULT OUT OF REFERENCE UNITS RANGE LAB 668635236( High 4.0-6.3 % LOINC) Hemoglobin 9.7 A1c Performed By: #### [id number] ####EMILIO Chemistry Manual Gmwlxptgli2927 [place] [address] CERV SPINE 2 OR 3 Observed: 05/06/2017 Status: F Source: ENRIQUETA VIEWS 12:55 PM [facility] REPOSITORY [facility]ITAL[facility] [address] [place] [place], [place] [address]Ztdczge 4dCerv Spine 2 or 3 ViewsMR#: [id number] Acct: [id number]: RON COATES Rep #: [id number]: 1954 F 61 From: Cipriano Brown MDPCP: OLGA HUTCHISON Status: REG CLIStudy: Cerv Spine 2 or 3 Views Date of Exam: Exam# [id number] Ordering Dr: Clarita Rice MDSTUDY: X-RAY - CERVICAL SPINEREASON FOR EXAM: Female, 61 years old. PainTECHNIQUE: 4 view(s) of the cervical spine were obtained.COMPARISON: None FINDINGS:Normal anterior atlantoaxial articulation. Normal odontoid process.There is straightening of the normal cervical lordosis. There ismulti-level endplate spondylosis. There is multi-level degenerative discdisease with multilevel disc space narrowing.The soft tissue structures are unremarkable. ORDER #: [id number] RAD/Cerv Spine 2 or 3 ViewsIMPRESSION:Cervical spondylosis with multilevel degenerative disease and straighteningof the cervical lordosisElectronically Signed:Cipriano Brown MD, ESHC5902/05/06 at 13:33 EDTTel , Service support , NL: Clarita Rice MD; OLGA HUTCHISON Summer Counselor:Signed BMP Collected: 03/14/2017 Status: F Source: RESTORATION 1:49 PM [facility] REPOSITORY TYPE CODE TESTS RESULT OUT OF RANGE REFERENCE UNITS LAB 90668078(L High 70-99 mg/dL OINC) Glucose Lvl 206 LAB 24485757(L Normal 8.4-10.2 mg/dL OINC) Calcium Lvl 8.7 LAB 24412642(L Low 136-145 mEq/L OINC) Sodium Lvl 135 LAB 78936450(L Normal 3.5-5.1 mEq/L OINC) Potassium Lvl 4.0 LAB 82692822(L Low 98-107 mEq/L OINC) Chloride 94 LAB 25574225(L High 24.0-30.0 mEq/L OINC) CO2 32.2 LAB 92732247(L High 7-18 mg/dL OINC) BUN 20 LAB 4928356(LO Normal 0.6-1.3 mg/dL INC) Creatinine 0.8 LAB 16403517(L Normal 5.4-30.0 ratio OINC) BUN/Creat 25.0 Ratio Performed By: #### [id number] ####EMILIO MznTpjp5207 [place] [address] EGFR Collected: 03/14/2017 Status: F Source: RESTORATION 1:49 PM [facility] REPOSITORY Order Comment: Order added by Discern Expert. TYPE CODE TESTS RESULT OUT OF RANGE REFERENCE UNITS LAB 71611161(LO Normal mL/min/1.73 INC) eGFR >60 m2 LAB 00973790(LO Normal mL/min/1.73 INC) eGFR >60 m2 AA Performed By: #### [id number] ####EMILIO EdrZspi9929 [place] [address] FREE T4 Collected: 03/14/2017 Status: F Source: RESTORATION 1:49 PM [facility] REPOSITORY TYPE CODE TESTS RESULT OUT OF RANGE REFERENCE UNITS LAB 96436125(LO Normal 0.58-1.64 ng/dL INC) T4 1.60 Free Performed By: #### [id number] ####EMILIO ZwvBvim5747 [place] [address] XR SPINE LUMBOSACRAL 2 Observed: 03/14/2017 Status: F Source: RESTORATION OR 3 VIEWS 6:56 AM [facility] REPOSITORY Exam Date/Time:03/14/2017 07:04 EDTReason for Exam:Back painReportEXAMINATION: Lumbar spine with lateral. 3 images.COMPARISON: None.INDICATION: Fracture at L4 from years ago. Pain in low back.No recent injury.FINDINGS: 2 lateral and one AP view reveal anatomic variation with 6lumbar-appearing vertebra between the lowermost set of ribs and the sacrum. Thesacroiliac joints are patent. There are surgical clips in the right upperquadrant compatible with cholecystectomy.Patient has a convex left rotoscoliosis T12-L5. Hypertrophic spurring ispresent particularly along the anterolateral aspect of L3-L4. Lateral viewreveals disc space narrowing L2-L3, L3-L4, and L4-L5. Neutral lateral filmsshow no evidence of obvious spondylolisthesis or spondylolysis.Calcification is noted in portions of the aorta without obvious aneurysm.On the lateral view there is slight depression superior endplate of what Iwould consider L5 which may have been previously interpreted as L4 since it isthe next to last lumbar-appearing segment in this patient with the appearanceof 6 lumbars.IMPRESSION:Chronic findings.Hypertrophic spurring, several levels of disc space narrowing, convex leftrotoscoliosis lumbar spine.6 lumbar-appearing vertebral segments. FINAL REPORT Dictated: 03/14/2017 8:30 am Bora Mendez DO JSigned (Electronic Signature): 2016 9:30 amSigned by: Bora Mendez DO Technologist: PA, CBC W/ AUTO DIFF Collected: 03/14/2017 Status: F Source: RESTORATION 6:54 AM [facility] REPOSITORY TYPE CODE TESTS RESULT OUT OF RANGE REFERENCE UNITS LAB 04153966(L High 3.6-11.0 E3/mcL OINC) WBC 11.3 LAB 35882131(L Normal 3.90-5.40 E6/mcL OINC) RBC 4.63 LAB 03259052(L Normal 12.0-16.0 G/DL OINC) Hgb 12.6 LAB 92567184(L Normal 36.0-48.0 % OINC) Hct 39.5 LAB 78988761(L High 11.5-14.5 % OINC) RDW 14.8 LAB 00315440(L Normal 27.0-31.0 pg OINC) MCH 27.2 LAB 84780740(L Low 33.0-37.0 G/DL OINC) MCHC 31.9 LAB 53905748(L Normal 78.0-100.0 fL OINC) MCV 85.3 LAB 11263344(L Normal 7.4-11.0 fL OINC) MPV 7.6 LAB 73804974(L Normal 130-400 E3/mcL OINC) Platelet 386 Performed By: #### [id number] ####EMILIO BowieHovMtyc7837 [place] [address] AUTO DIFF Collected: 03/14/2017 Status: F Source: RESTORATION 6:54 AM [facility] REPOSITORY Order Comment: Order Added by Discern Expert. TYPE CODE TESTS RESULT OUT OF RANGE REFERENCE UNITS LAB 63466705(L Normal 37.0-75.0 % OINC) Neutro 68.6 Auto LAB 07033162(L Normal 20.0-55.0 % OINC) Lymph 23.9 Auto LAB 47586746(L Normal 0.0-10.0 % OINC) [place] Auto 5.4 LAB 30223302(L Normal 0.0-11.0 % OINC) Eos Auto 1.5 LAB 33503998(L Normal 0.0-2.0 % OINC) Basophil 0.6 Auto LAB 57596405(L High 1.4-6.5 E3/mcL OINC) Neutro 7.8 Absolute LAB 09882351(L Normal 1.2-3.4 E3/mcL OINC) Lymph 2.7 Absolute LAB 98726070(L Normal 0.0-0.7 E3/mcL OINC) [place] 0.6 Absolute LAB 64918296(L Normal 0.0-0.7 E3/mcL OINC) Eos 0.2 Absolute LAB 50871638(L Normal 0.0-0.2 E3/mcL OINC) Basophil 0.1 Absolute Performed By: #### [id number] ####EMILIO BowieNitXkdm8937 [place] [id number] LIPID PROFILE Collected: 03/14/2017 Status: F Source: RESTORATION 6:54 AM [facility] REPOSITORY TYPE CODE TESTS RESULT OUT OF RANGE REFERENCE UNITS LAB 10188380(LO Normal 50-200 mg/dL INC) Chol 134 Result Comment: TOTAL CHOLEESTEROL: <200 NORMAL 200 - 239 BORDERLINE HIGH >240 HIGH LAB 17108569(LOINC) Low >=41 mg/dL HDL 40 LAB 82705794(LOINC) Normal 0-130 mg/dL LDL 72 Result Comment: <100 HOCHKQZ421-531 NEAR / ABOVE FQCLXKZ147-706 BORDERLINE ZWFJ689-990 HIGH>190 VERY HIGHCALC LDL NOT VALID WHEN TRIGLYCERIDE IS >400 MG/DL LAB 06823204(LOINC) Normal 35-150 mg/dL Trig 112 Result Comment: <150 DJJCQD631-045 BORDERLINE KZEU965-770 HIGH& gt;500 VERY HIGH LAB 27173340(LOINC) Normal VLDL 22 Performed By: #### [id number] ####EMILIO BowieBkyVzln5401 [place] [address] TSH Collected: 03/14/2017 Status: F Source: RESTORATION 6:54 AM [facility] REPOSITORY TYPE CODE TESTS RESULT OUT OF RANGE REFERENCE UNITS LAB 27780015(LO Low 0.30-5.60 mIU/m INC) TSH 0.12 Performed By: #### [id number] ####EMILIO IsvCetq9041 [place] [address] HGBA1C Collected: 03/14/2017 Status: F Source: RESTORATION 6:54 AM [facility] REPOSITORY TYPE CODE TESTS RESULT OUT OF REFERENCE UNITS RANGE LAB 313538404( High 4.0-6.3 % LOINC) Hemoglobin 9.8 A1c Performed By: #### [id number] ####EMILIO Chemistry Manual [address]vua8395 [place] [address] ALLERGIES ALLERGIES DATE TYPE / CODE NAME / CODE REACTION SEVERITY SOURCE 03/06/2018 Drug No Known Unknown [facility] Allergy/416 Allergies/J68433 Hospital 091963(SNOM 0388(RXNORM) Repository ED CT) Drug/484114 No Known Taoism 003(SNOMED [facility]ergies [facility] System Repository ENCOUNTERS ENCOUNTERS ADMIT/DISCHARGE ACCOUNT NUMBER ADMITTING ENCOUNTER LOCATION SOURCE CLASS 03/06/2018 [id number] Emergency [facility] ng:ED Repository 02/17/2018/02/18/[id number] [facility] Repository 02/12/2018 [id number] Ambulatory Jennifer Jean Baptiste MDBuilding:[facility] Health System Repository 02/12/2018/02/13/20 [id number] Ambulatory Jennifer Jean Baptiste [facility]uilding[facility] Waiting Repository 02/09/2018/02/10/20 [id number] Ambulatory [place] [address] Internal [facility] ng:[facility] Repository 02/09/2018 [id number] Jihan, Ambulatory [facility] CardiologyBuil Regional ding:[facility] Cardiology Repository 02/04/2018/02/05/20 [id number] [place] [address] [address] [facility] ng:SH.SURG Health System Repository 02/03/2018/02/04/20 [id number] Ambulatory [address] ng:[facility] Repository 02/02/2018/02/03/20 [id number] Ambulatory [address] ng:[facility] Repository 01/22/[id number] [facility] t Repository 01/22/2018/01/23/[id number] [address] ng:[facility] t Repository 01/01/2018/01/02/[id number] [address] ng:[facility] t Repository 12/16/2017/12/16/19 [id number] Ambulatory Bora [address]:[facility] Repository 12/01/2017/12/01/[id number] ng:[facility] Repository 11/27/2017/11/27/[id number] ng:[facility] System Repository 11/25/2017/11/25/[id number] ng:[facility] System Repository 11/25/2017/11/25/[id number]urnima[address] Repository ng:Shantel m: Room 1 11/13/2017/11/13/19 [id number] [facility], [address] ng:[facility] Repository om: Room 3 10/13/2017/10/13/[id number] System ng:[facility] Repository 10/09/2017/10/09/20 [id number] Ambulatory [address] ng:[facility] Repository om: Room 3 09/23/2017/09/23/20 [id number] Giovani, [address] ng:[facility] System Repository 09/12/2017/09/12/20 [id number] Ambulatory Lev Jean Baptistearitan 17 MDBuilding:[facility] ellRoom: Room Health System 1 Repository 09/11/2017/09/11/20 [id number] Ambulatory [address] ng:[facility] Repository om: Room 4 08/11/2017 [id number] Ambulatory [facility] Cardiology[facility] Regional ding:[facility] Cardiology Repository 08/11/2017/08/11/20 [id number] Ambulatory [place] [address] Card[facility] Regional ding:[facility] CardiologyRoom Repository : Room 2 08/11/2017/08/11/20 [id number] Ambulatory [address] ng:[facility] Repository om: Room 3 08/05/2017/08/05/[id number] Hernandez[address] MedicineBuildi Repository ng:Shantel m: Room 4 07/31/2017/08/01/[address] [id number]adon[address] ng:[facility] m: 0311Bed: 01 Repository 06/12/2017/06/12/20 [id number] Ambulatory Bora Espinoza Taoism 17 MDBuilding:Pow Regional ellRoom: Room Health System 1 Repository 06/10/2017/06/10/20 [id number] Ambulatory [address] ng:[facility] Repository om: Room 3 05/06/2017 [id number] [facility] ng:RAD Repository 04/15/[id number] [facility] ng:[facility] Health System Repository 04/15/2017/04/15/[id number] [place] [address] Jessica A [facility] ng:[facility] Health System Repository 04/07/2017/04/07/20 [id number] Ambulatory [place] [address] Internal [facility] ng:[facility] Repository om: Room 2 04/01/2017/04/01/20 [id number] Kavehrier, [place] [address] Triny L [facility] Repository ng[facility] m: Room 3 03/14/2017 [id number] Ambulatory [facility] Regional ding:[facility] Cardiology Repository 03/14/2017/03/14/20 [id number] Ambulatory [place] [address] [facility]il Regional ding:[facility] CardiologyRoom Repository : Room 2 03/14/2017/03/14/20 [id number] [facility] [facility] ng:[facility] System Repository PAYERS PAYERS ENCOUNTER GUARANTOR PAYER SUBSCRIBER SOURCE 03/06/2018 RON SOLIS E Primary RON HOWMANDOB: [place] [address] Insurance:MEDICARE A [id number] Wilson StreetPolic Number: [facility] [address]Ziv: (326) [id number] Repository [phone] () Date:2018-03-06 03/06/2018 Secondary RON HOWMANDOB: [place] Insurance:MEDICAIDPol [id number] [facility] icy Number: [facility] [id number] Repository Date:2018-03-06 03/06/2018 Tertiary NOT GIVENUNK [place] Insurance:SELF PAY [facility] Number: Effective Repository Date:2018-03-06 02/17/2018 RON Curiel [facility]ON [facility]: Insurance:MedicaidPol HOWMANNORRISDOB: [facility] E icy Number: Effective [id number] E System [address]T Date:2018-02-13 - MAIN [address] APT Repository [address] [place] [address] [id number] [address] [place] [address] [id number]: Name:CD:[id number] E [id number]: [address] (HP) [place], [place] (HP)Tel: [phone]) [phone]: (WP) [phone] 02/12/2018 RON L Primary RON L Taoism HOWMANNORRISDOB: Insurance:1500 HOWMANNORRISDOB: [facility] E MEDICAID [id number] E System [address]T PRIMARYPolicy Number: MAIN ST APT Repository [address] [place] [address] [place] [address] [id number]: Date:2018-02-12 [id number]: [id number] (HP) Name:CD:[id number] O (HP)Tel: (000) [address] [address] (WP) [phone]: 02/12/2018 RON L Primary RON L Taoism HOWMANNORRISDOB: Insurance:1500 HOWMANNORRISDOB: [facility] E MEDICAID [id number] E System MAIN ST APT PRIMARYPolicy Number: MAIN ST APT Repository [address] [place] [address] [place] [address] [id number]: Date:2018-02-12 [id number]: [id number] (HP) Name:CD:[id number] O (HP)Tel: (000) [address], [place] [address] (WP) [phone]: 02/09/2018 RON L Primary RON L Taoism HOWMANNORRISDOB: Insurance:1500 HOWMANNORRISDOB: [facility] E MEDICAID [id number] E System MAIN [address] APT PRIMARYPolicy Number: MAIN ST APT Repository [address] [place] [address] [place] [address] [id number]: Date:2017-10-09 - [id number]: [id number] (HP) Name:CD:[id number] O (HP)Tel: 000) [address], [place] 000[address] (WP) [phone]: 02/09/2018 RON L Primary RONIVIS Rodriguez HOWMANNORRISDOB: Insurance:MedicaidPol HOWMANNORRISDOB: [facility] E icy Number: Effective [id number] E System [address]T Date:2017-12-04 - [facility] ST APT Repository [address] [place] [address] [id number] [address] [place] [address] [id number]: Name:CD:[id number] E [id number]: [address] ([place]) [place] ([place])Tel: 000 [phone]: (WP) [phone] 02/04/2018 RON L Primary RONIVIS Rodriguez HOWMANNORRISDOB: Insurance:MedicaidPol HOWMANNORRISDOB: [facility] E icy Number: Effective [id number] E System MAIN ST [address]T Date:2018-01-28 - MAIN ST APT Repository [address] [place] [address] [id number] [address] [place] [address] [id number]: Name:CD:[id number] E [id number]: [address] ([place]) [place] ([place])Tel: [phone]) [phone]: (WP) [phone] 02/03/2018 RON L Primary RON L Taoism HOWMANNORRISDOB: Insurance:MedicaidPol HOWMANNORRISDOB: [facility] E icy Number: Effective [id number] E System MAIN ST [address]T Date:2018-02-02 - [facility] ST APT Repository [address] [place] [address] [id number] [address] [place] [address] [id number]: Name:CD:[id number] Filiberto [id number]: [address] ([place] ([place])Tel: 000) [phone]: (WP) [phone] 02/02/2018 RON L Primary RONIVIS Rodriguez HOWMANNORRISDOB: Insurance:MedicaidPol BANNERORRISDOB: [facility] E icy Number: Effective [id number] E System MAIN ST APT Date:2017-12-24 - [facility] ST APT Repository [address] [place] [address] [id number] [address] [place] [address] [id number]: Name:CD:[id number] E [id number]: [address] ([place]) [place] ([place])Tel: 000) [phone]: (WP) [phone] 01/22/2018 RON L Primary RONIVIS Rodriguez HOWMANNORRISDOB: Insurance:MedicaidPol [facility]: [facility] E icy Number: Effective [id number] E System MAIN ST [address]T Date:2018-01-22 - [facility] ST APT Repository [address] [place] [address] [id number] [address] [place] [address] [id number]: Name:CD:[id number] E [id number]: [address] ([place]) [place] ([place])Tel: (000) [phone]: (WP) [phone] 01/22/2018 RON L Primary RON L Taoism HOWMANNORRISDOB: Insurance:MedicaidPol HOWMANNORRISDOB: [facility] E icy Number: Effective [id number] E System MAIN ST APT Date:2018-01-14 - MAIN ST APT Repository [address] [place] [address] [id number] [address] [place] [address] [id number]: Name:CD:[id number] E [id number]: [address] ([place]) [place] ([place])Tel: [phone]) [phone]: (WP) [phone] 01/01/2018 RON L Primary RONIVIS Rodriguez HOWMANNORRISDOB: Insurance:MedicaidPol MANNORRISDOB: [facility] E icy Number: Effective [id number] E System MAIN ST APT Date:2017-12-29 - [facility] ST APT Repository [address] [place] [address] [id number] [address] [place] [address] [id number]: Name:CD:[id number] E [id number]: [address] (HP) [facility], [place] (HP)Tel: [phone]) [phone]: (WP) [phone] 12/16/2017 RON L Primary RONIVIS Rodriguez HOWMANNORRISDOB: Insurance:1500 MANNORRISDOB: [facility] E MEDICAID [id number] E System [address]IN [address] APT PRIMARYPolicy Number: [facility] ST APT Repository [address] [place] [address] [place] [address] [id number]: Date:2017-09-12 [id number]: [id number] (HP) Name:CD:[id number] O (HP)Tel: (000) [address], [place] [address] (WP) [phone]: 12/01/2017 RON L Primary RON L Taoism HOWMANNORRISDOB: Insurance:MedicaidPol HOWMANNORRISDOB: [facility] E icy Number: Effective [id number] E System [address]T Date:2017-11-28 - [facility] ST APT Repository [address] [place] [address] [id number] [address] [place] [address] [id number]: Name:CD:[id number] E [id number]: [address] ([place]Tel: 000 [phone]: (WP) [phone] 11/27/2017 RON L Primary RON L Taoism HOWMANNORRISDOB: Insurance:MedicaidPol BANNERORRISDOB: [facility] E icy Number: Effective [id number] E System MAIN [address] APT Date:2017-10-31 - [facility] ST APT Repository [address] [place] [address] [id number] [address] [place] [address] [id number]: Name:[id number]: [address] ([place] ([place])Tel: 000 [phone]: (WP) [phone] 11/25/2017 RNO L Primary RON Moisés Rodriguez HOWMANNORRISDOB: Insurance:MedicaidPol BANNERORRISDOB: [facility] E icy Number: Effective [id number] E System MAIN ST APT Date:2017-11-25 - [facility] ST APT Repository [address] [place] [address] [id number] [address] [place] [address] [id number]: Name:CD:[id number] E [id number]: [address] ([place] ([place])Tel: 000 [phone]: (WP) [phone] 11/25/2017 RON L Primary RON L Taoism HOWMANNORRISDOB: Insurance:1500 HOWMANNORRISDOB: [facility] E MEDICAID [id number] E System MAIN [address] APT PRIMARYPolicy Number: MAIN ST APT Repository [address] [place] [address] Effective [place], [place] [id number]: Date:2017-11-25 [id number]: [id number] (HP) Name:CD:[id number] O (HP)Tel: (000) [address], [place] 000[address] (WP) [id number]: 11/13/2017 RON L Primary RONIVIS Rodriguez HOWMANNORRISDOB: Insurance:1500 HOWMANNORRISDOB: [facility] E MEDICAID [id number] E System MAIN [address] APT PRIMARYPolicy Number: MAIN ST APT Repository [address] [place] [address] Effective [address], [place] [id number]: Date:2017-11-13 [id number]: [id number] (HP) Name:CD:[id number] O (HP)Tel: (000) [address], [place] 000[address] (WP) 41002JE: 10/13/2017 RON L Primary RONIVIS Rodriguez HOWMANNORRISDOB: Insurance:1500 HOWMANNORRISDOB: [facility] E MEDICAID [id number] E System MA[address] APT PRIMARYPolicy Number: MAIN ST APT Repository [address] [place] [address] Effective [address], [place] [id number]: Date:2017-09-11 [id number]: 2100-12-31Plan (HP) Name:CD:[id number] O (HP)Tel: (000) [address], [place] 000[address] (WP) [address]CQ: 10/09/2017 RON L Primary RON L Taoism HOWMANNORRISDOB: Insurance:1500 HOWMANNORRISDOB: [facility] E MEDICAID [id number] E System MA[address] APT PRIMARYPolicy Number: MAIN ST APT Repository [address] [place] [address] [place] [address] [id number]: Date:2017-10-09 - [id number]: [id number] (HP) Name:CD:[id number] O (HP)Tel: (000) [address] [address] (WP) [id number]: 09/23/2017 RON L Primary RON L Taoism HOWMANNORRISDOB: Insurance:MedicaidPol HOWMANNORRISDOB: [facility] E icy Number: Effective [id number] E System MAIN ST APT Date:2017-09-16 - [facility] ST APT Repository [address] [place] [address] [id number] [address] [place] [address] [id number]: Name:CD:[id number] E [id number]: [address] (HP) [place], [place] (HP)Tel: 000) [phone]: (WP) [phone] 09/12/2017 RON L Primary RON L Taoism HOWMANNORRISDOB: Insurance:1500 HOWMANNORRISDOB: [facility] E MEDICAID [id number] E System MAIN ST APT PRIMARYPolicy Number: [facility] ST APT Repository [address] [place] [address] [place] [address] [id number]: Date:2017-06-12 - [id number]: 4017-74-80Safw (HP) Name:CD:[id number] O (HP)Tel: (000) [address], [place] 000[address] (WP) 38059QC: 09/11/2017 RON L Primary RON L Taoism HOWMANNORRISDOB: Insurance:1500 HOWMANNORRISDOB: [facility] E MEDICAID [id number] E System MAIN ST APT PRIMARYPolicy Number: MAIN ST APT Repository [address] [place] [address] Effective [address], [place] [id number]: Date:2017-08-11 [id number]: [id number] (HP) Name:CD:[id number] O (HP)Tel: (000) [address], [place] 000[address] (WP) 32920GR: 08/11/2017 RON L Primary RON L Taoism HOWMANNORRISDOB: Insurance:1500 HOWMANNORRISDOB: [facility] E MEDICAID [id number] E System MAIN [address] APT PRIMARYPolicy Number: MAIN ST APT Repository [address] [place] [address] Effective [address], [place] [id number]: Date:2017-08-11 [id number]: 0468-90-18Bbij (HP) Name:CD:[id number] O (HP)Tel: (000) [address], [place] 000[address] (WP) 95318DL: 08/11/2017 RON L Primary RON L Taoism HOWMANNORRISDOB: Insurance:1500 HOWMANNORRISDOB: [facility] E MEDICAID [id number] E System MAIN ST APT PRIMARYPolicy Number: MAIN ST APT Repository [place] Effective [place], [place] [id number]: Date:2017-08-11 [id number]: [id number] (HP) Name:CD:[id number] O (HP)Tel: (000) [address] [address] (WP) 27915EO: 08/11/2017 RON L Primary RON L Taoism HOWMANNORRISDOB: Insurance:1500 HOWMANNORRISDOB: [facility] E MEDICAID [id number] E System MA[address] ST APT PRIMARYPolicy Number: MAIN ST APT Repository [address] [place] [address] [place] [address] [id number]: Date:2017-04-07 [id number]: [id number] (HP) Name:CD:[id number] O (HP)Tel: (000) [address], [place] 000[address] (WP) 37072ZD: 08/05/2017 RON L Primary RONIVIS Rodriguez HOWMANNORRISDOB: Insurance:1500 HOWMANNORRISDOB: [facility] E MEDICAID [id number] E System MAIN ST APT PRIMARYPolicy Number: [facility] ST APT Repository [address] [place] [address] [place] [address] [id number]: Date:2017-08-05 [id number]: 3377-17-79Rqvn (HP) Name:CD:[id number] O (HP)Tel: (000) [address] [address] (WP) 24851JT: 07/31/2017 RON L Primary RON FERREIRAORRISDOB: Insurance:MedicaidPol HOWMANNORRISDOB: [facility] E icy Number: Effective [id number] E System MAIN ST APT Date:2017-07-31 - [facility] ST APT Repository [address] [place] [address] [id number] [address] [place] [address] [id number]: Name:CD:[id number] E [id number]: [address] (HP) [place], [place] (HP)Tel: (000) [phone]: (WP) [phone] 06/12/2017 RON L Primary RONIVIS GOODMANNORRISDOB: Insurance:1500 HOWMANNORRISDOB: [facility] E MEDICAID [id number] E System MA[address] APT PRIMARYPolicy Number: MAIN ST APT Repository [address] [place] [address] [place] [address] [id number]: Date:2017-02-14 [id number]: 7725-74-52Hinb (HP) Name:CD:[id number] O ()Tel: (000) [address], [place] 000[address] (WP) 51772RD: 06/10/2017 RON L Primary RON L Jennifer GOODMANNORRISDOB: Insurance:1500 HOWMANNORRISDOB: [facility] E MEDICAID [id number] E System MA[address] APT PRIMARYPolicy Number: MAIN ST APT Repository [address] [place] [address] [place] [address] [id number]: Date:2017-06-10 [id number]: [id number] (HP) Name:CD:[id number] O ()Tel: (000) [address], [place] 000[address] (WP) 31642MM: 05/06/2017 RONIVIS TRONCOSO Primary RON TRONCOSO [address] Insurance:MEDICAIDPol [facility]: [facility] icy Number: [id number] [address] [id number] Repository [address]Chq: 419) Date: [phone] (HP) 04/15/2017 RON L Primary RON FERREIRAORRISDOB: Insurance:MedicaidPol MANNORRISDOB: [facility] E icy Number: Effective [id number] E System MAIN ST APT Date:2017-04-15 - MAIN ST APT Repository [address] [place] [address] [id number] [address] [place] [address] [id number]: Name:CD:[id number] E [id number]: [address] (HP) [facility], [place] (HP)Tel: (701) [phone]: (WP) [phone] 04/15/2017 RON L Primary RON FERREIRAORRISDOB: Insurance:MedicaidPol HOWMANNORRISDOB: [facility] E icy Number: Effective [id number] E System MAIN ST APT Date:2017-04-14 - MAIN ST APT Repository [address] [place] [address] [id number] [address] [place] [address] [id number]: Name:CD:[id number] E [id number]: [address] (HP) [facility], [place] (HP)Tel: (080) [phone]: (WP) [phone] 04/07/2017 RON L Primary RON FERREIRAORRISDOB: Insurance:1500 HOWMANNORRISDOB: [facility] E MEDICAID [id number] E System MAIN ST APT PRIMARYPolicy Number: MAIN ST APT Repository [address] [place] [address] [place] [address] [id number]: Date:2017-03-06 [id number]: 4404-90-45Lavl (HP) Name:CD:[id number] O (HP)Tel: 000) [address], [place] 000[address] (WP) 550[address]NJ: 04/01/2017 RON L Primary RONIVIS FERREIRAORRISDOB: Insurance:1500 HOWMANNORRISDOB: [facility] E MEDICAID [id number] E System MAIN ST APT PRIMARYPolicy Number: MAIN [address]T Repository [address] Effective [address] [place] [address] [id number]: Date:2017-04-01 [id number]: 1305-67-30Sdkd (HP) Name:CD:[id number] O (HP)Tel: (000) [address], [place] 000[address] (WP) 75934YM: 03/14/2017 RON L Primary RON FERREIRAORRISDOB: Insurance:1500 HOWMANNORRISDOB: [facility] E MEDICAID [id number] E System MAIN ST APT PRIMARYPolicy Number: MAIN ST APT Repository [address] [place] [address] [place] [address] [id number]: Date:2017-03-14 - [id number]: 2100-12-31plan (HP) Name:CD:[id number] O (HP)Tel: (000) [address], [place] 000[address] (WP) 08000DE: 03/14/2017 RON L Primary RON Rodriguez HOWMANNORRISDOB: Insurance:1500 HOWMANNORRISDOB: [facility] E MEDICAID [id number] E System MAIN ST APT PRIMARYPolicy Number: MAIN ST APT Repository [address] [place] [address] [place] [address] [id number]: Date:2016-11-18 [id number]: 2195-64-28Riar (HP) Name:CD:[id number] O (HP)Tel: (000) [address], [place] 000[address] (WP) 85612YT: 03/14/2017 RON L Primary RON FERREIRAORRISDOB: Insurance:MedicaidPol HOWMANNORRISDOB: [facility] E icy Number: Effective [id number] E System MAIN ST APT Date:2017-03-14 - MAIN ST APT Repository [address] [place] [address] [id number] [address] [place] [address] [id number]: Name:CD:[id number] E [id number]: [address] () [facility] [place] ()Tel: ([phone]) [phone]: () [phone]
[2018-03-06 19:40] VITALS: BP 154/80; PULSE 62; RESP 14; O2SAT 98
--- NOTE | 2018-03-10 10:31 | CM.ED ---
Call received from Zuleima, at [facility], stating they need further information to continue providing oxygen. All needed information was faxed at this time. Call placed to patient who confirms that she does want to use [facility] for her oxygen provider. Patient states she is residing at [facility] and is not allowed inside, on the concentrator, during the day. Zuleima notified and states that she will get in touch with the patient for further tank delivery.
== END 2018-03-06 20:30 | disposition home or self-care (01) ==
PROVIDERS: Emergency Provider Emergency Medicine; Family Provider Internal Medicine; PCP Internal Medicine
DX: J44.9 Chronic obstructive pulmonary disease, unspecified (principal); Z99.81 Dependence on supplemental oxygen; I25.10 Atherosclerotic heart disease of native coronary artery without angina pectoris; E11.9 Type 2 diabetes mellitus without complications; I10 Essential (primary) hypertension; E78.00 Pure hypercholesterolemia, unspecified; Z59.0 Homelessness; Z86.73 Personal history of transient ischemic attack (TIA), and cerebral infarction without residual deficits; Z79.4 Long term (current) use of insulin; Z72.0 Tobacco use; Z79.82 Long term (current) use of aspirin; Z79.891 Long term (current) use of opiate analgesic; Z79.899 Other long term (current) drug therapy
CPT/HCPCS: 99284